=== PATIENT | female | born 1985 | race American Indian/Alaskan Native ===

== ENCOUNTER 2018-11-17 23:40 | Emergency (ER) | payer MEDICAID ==
[2018-11-17 23:47] VITALS: BP 159/84; PULSE 86; TEMP 98.3; O2SAT 100
[2018-11-18] MEDS ORDERED: Tetracaine 0.5% Ophth 2 ML BOTTLE OD ONE (00:26)
[2018-11-18] MEDS ORDERED: Fluorescein 1 mg Ophthalmic Strip OD ONE (00:26)
--- NOTE | 2018-11-18 00:46 | ED PDOC ---
HPI: Eye Injury/Pain Time Seen by Provider: 11/17/18 23:56 Chief Complaint (Nursing): Headache History Per: Patient History/Exam Limitations: no limitations Onset/Duration Of Symptoms: Hrs Current Symptoms Are (Timing): Intermittent Episodes Additional Complaint(s): 33 year old F with history of IGG nephropathy presenting with floaters in R eye on occasion. States it has occured for the past 2 weeks, only on the R side, states she feels like she sees bright white flashes that come and go. Denies pain, vision loss, discharge, fevers. States she was concerned for a retinal detachment so she came to the E.D. Past Medical History Reviewed: Historical Data, Nursing Documentation, Vital Signs Vital Signs: Last Vital Signs Temp 98.3 F 11/17/18 23:46 Pulse 86 11/17/18 23:46 Resp BP 159/84 H 11/17/18 23:46 Pulse Ox 100 11/17/18 23:46 Primary Care Provider: FAMILY PROVIDER,NO - Medical History PMH: HTN, Chronic Kidney Disease - Family History Family History: States: Unknown Family Hx - Allergies Allergies/Adverse Reactions: Allergies Allergy/AdvReac Type Severity Reaction Status Date / Time No Known Allergies Allergy Verified 11/17/11 09:56 Review of Systems ROS Statement: Except As Marked, All Systems Reviewed And Found Negative ENT: Positive for: Other (Floaters in eye) Physical Exam - Reviewed Vital Signs Reviewed: Yes - Physical Exam Appears: Positive for: Well, Non-toxic, No Acute Distress Head Exam: Positive for: ATRAUMATIC, NORMAL INSPECTION, NORMOCEPHALIC Eye Exam: Positive for: Normal appearance, EOMI, PERRL, Other (Retinal veins normal in appearance). Negative for: Nystagmus, Periorbital swelling, Periorbital tenderness, Conjunctival injection, Scleral icterus - ECG O2 Sat by Pulse Oximetry: 100 Pulse Ox Interpretation: Normal Medical Decision Making Medical Decision Making: Bedside sonogram shows no retinal detachment Explained to patient that her symptoms are not likely related to detachment. STRONGLY encouraged follwoup with Dr. Rosenbaum tomorrow, jai states she will make an appointment. Disposition - Clinical Impression Clinical Impression: Eye abnormality - Patient ED Disposition Is Patient to be Admitted: No Counseled Patient/Family Regarding: Need For Followup - Disposition Referrals: Edmundo Rosenbaum MD [Staff Provider] - Disposition: Routine/Home Disposition Time: 00:49 Condition: IMPROVED Instructions: Floaters in the Eye Forms: [facility] [employer] ([place]ian)
== END 2018-11-18 01:03 | disposition home or self-care (01) ==
LOC: H.ER 23:40
DX: H43.399 Other vitreous opacities, unspecified eye (principal)